=== PATIENT | male | born 1945 | race African-American/Black ===

== ENCOUNTER 2017-08-12 18:26 | Emergency (ER) | payer MEDICARE, OTHER ==
[2017-08-12] MEDS: fentaNYL PF VIAL 100 MCG/2 ML VIAL IV (19:31)
[2017-08-12 19:36] LABS: ADD MAN DIFF? NO
[2017-08-12 19:41] LABS: BASO # 0.1 x10^3/uL (0.0-0.2); BASO % 1 % (0-3); EOS # 0.2 x10^3/uL (0.0-0.7); EOS % 2 % (0-3); HEMATOCRIT 35.5 % (39.0-53.0); LYMPH # 1.2 x10^3/uL (1.0-4.8); LYMPH % 11 % (24-48); MEAN CORPUSCULAR HEMOGLOBIN 32 pg (25-35); MEAN CORPUSCULAR HGB CONC 34 g/dL (31-37); MEAN CORPUSCULAR VOLUME 93 fL (79-100); MONO % 9 % (0-9); NEUT # 8.6 x10^3uL (1.8-7.7); NEUT % 77 % (31-73); PLATELET COUNT 551 x10^3/uL (140-400); RED CELL DISTRIBUTION WIDTH 15.1 % (11.5-14.5); WHITE BLOOD COUNT 11.1 x10^3/uL (4.0-11.0)
[2017-08-12 19:50] LABS: INR 1.2 (0.8-1.1); PROTHROMBIN TIME PATIENT 14.4 SEC (11.7-14.0)
[2017-08-12 19:51] LABS: ANION GAP 6 (6-14); BLOOD UREA NITROGEN 33 mg/dL (8-26); CARBON DIOXIDE 27 mmol/L (21-32); CHLORIDE 101 mmol/L (98-107); CREATININE 1.6 mg/dL (0.7-1.3); GFR 51.7; GLUCOSE 118 mg/dL (70-99); POTASSIUM 4.9 mmol/L (3.5-5.1); SODIUM 134 mmol/L (136-145)
[2017-08-12] MEDS: oxyCODONE/APAP 10/325 1 TAB TABLET PO (22:20)
== END 2017-08-12 23:10 | disposition home or self-care (01) ==
LOC: ER 18:26
DX: M79.89 Other specified soft tissue disorders (principal); M79.662 Pain in left lower leg; Z96.651 Presence of right artificial knee joint
CPT/HCPCS: 36415; 80048; 85025; 85610; 93923; 93971; 96374; 99284; 99285; J3010

== ENCOUNTER 2017-08-28 12:25 | Inpatient (IN) | payer MEDICARE, OTHER ==
[2017-08-28 16:21] LABS: POC GLUCOSE 123 mg/dL (70-99)
[2017-08-28] MEDS ORDERED: MORPHINE SULFATE 4 MG/ML DISP.SYRIN. IV (16:30)
[2017-08-28] MEDS ORDERED: ACETAMINOPHEN 325 MG TABLET. PO (16:45)
[2017-08-28] MEDS ORDERED: BISACODYL 10 MG SUPP.RECT. RC (16:45)
[2017-08-28] MEDS: ALBUTEROL SULFATE 2.5 MG/3 ML NEBU. NEB ×2 (16:46→19:02)
[2017-08-28] MEDS: FERROUS SULFATE 325 MG TABLET. PO (17:00)
[2017-08-28] MEDS: FOLIC ACID 1 MG TABLET. PO (17:00)
[2017-08-28] MEDS: ASCORBIC ACID 500 MG TABLET PO (17:00)
[2017-08-28] MEDS: POLYETHYLENE GLYCOL 3350 17 GM PACKET. PO (17:00)
[2017-08-28] MEDS: CETIRIZINE HCL 10 MG TABLET. PO (17:00)
[2017-08-28] MEDS: PROMETH/CODEINE 6.25/10MG 5 ML SYRUP. PO ×2 (17:00→22:00)
[2017-08-28] MEDS ORDERED: CLOPIDOGREL BISULFATE 75 MG TABLET PO (17:00)
[2017-08-28] MEDS ORDERED: DOCUSATE SODIUM 100 MG CAPSULE. PO (17:00)
[2017-08-28] MEDS: CYANOCOBALAMIN (VITAMIN B-12) 1,000 MCG TABLET. PO (17:00)
[2017-08-28] MEDS ORDERED: amLODIPine BESYLATE 10 MG TABLET PO (17:00)
[2017-08-28] MEDS: LACTULOSE 20 GM/30 ML SOLUTION. PO (17:00)
[2017-08-28] MEDS: MORPHINE SULFATE 4 MG/ML DISP.SYRIN. IV (17:52)
[2017-08-28] MEDS: oxyCODONE/APAP 5/325 1 TAB TABLET PO (17:53)
[2017-08-28] MEDS: PIPERACILLIN/TAZOBACTAM 3.375 GM in IV NORMAL SALINE 50ML 50 ML IV (17:53)
[2017-08-28] MEDS ORDERED: MAGNESIUM HYDROXIDE 2,400 MG/30 ML ORAL.SUSP. PO (19:00)
[2017-08-28] MEDS ORDERED: SODIUM CHLORIDE 0.65% NASAL SPRAY 45ML BOTTLE. NS (19:00)
[2017-08-28] MEDS ORDERED: BENZOCAINE/MENTHOL LOZENGE. MM (20:00)
[2017-08-28 20:50] LABS: POC GLUCOSE 124 mg/dL (70-99)
[2017-08-28] MEDS: TAMSULOSIN 0.4 MG CAP.ER.24H. PO (21:59)
[2017-08-28] MEDS: BENZONATATE 100 MG CAPSULE. PO (22:00)
[2017-08-28] MEDS: SENNOSIDES/DOCUSATE 8.6/50MG TABLET. PO (22:00)
[2017-08-28] MEDS: GABAPENTIN 300 MG CAPSULE. PO (22:00)
[2017-08-29] MEDS: PIPERACILLIN/TAZOBACTAM 3.375 GM in IV NORMAL SALINE 50ML 50 ML IV ×5 (00:30→23:40)
[2017-08-29] MEDS: oxyCODONE/APAP 5/325 1 TAB TABLET PO ×5 (00:42→20:52)
[2017-08-29 07:20] LABS: POC GLUCOSE 106 mg/dL (70-99)
[2017-08-29] MEDS: ALBUTEROL SULFATE 2.5 MG/3 ML NEBU. NEB ×4 (07:36→19:37)
[2017-08-29] MEDS: CYANOCOBALAMIN (VITAMIN B-12) 1,000 MCG TABLET. PO (08:58)
[2017-08-29] MEDS: SENNOSIDES/DOCUSATE 8.6/50MG TABLET. PO ×2 (08:58→20:46)
[2017-08-29] MEDS: MULTIVITAMIN with MINERAL TABLET. PO (08:58)
[2017-08-29] MEDS: FERROUS SULFATE 325 MG TABLET. PO ×3 (08:58→17:00)
[2017-08-29] MEDS: CETIRIZINE HCL 10 MG TABLET. PO (08:58)
[2017-08-29] MEDS: GABAPENTIN 300 MG CAPSULE. PO ×2 (08:58→20:46)
[2017-08-29] MEDS: DOCUSATE SODIUM 100 MG CAPSULE. PO (08:58)
[2017-08-29] MEDS: amLODIPine BESYLATE 10 MG TABLET PO (08:59)
[2017-08-29] MEDS: CLOPIDOGREL BISULFATE 75 MG TABLET PO (08:59)
[2017-08-29] MEDS: POLYETHYLENE GLYCOL 3350 17 GM PACKET. PO (08:59)
[2017-08-29] MEDS: BENZONATATE 100 MG CAPSULE. PO ×3 (08:59→20:47)
[2017-08-29] MEDS: FOLIC ACID 1 MG TABLET. PO (08:59)
[2017-08-29] MEDS: LACTULOSE 20 GM/30 ML SOLUTION. PO (08:59)
[2017-08-29] MEDS: PROMETH/CODEINE 6.25/10MG 5 ML SYRUP. PO ×4 (08:59→20:47)
[2017-08-29] MEDS: FLUTICASONE 50MCG/NASAL SPRAY 16GM BOTTLE. NS (09:13)
[2017-08-29] MEDS: ASCORBIC ACID 500 MG TABLET PO (09:13)
[2017-08-29 12:31] LABS: POC GLUCOSE 100 mg/dL (70-99)
[2017-08-29] MEDS: LINEZOLID 600 MG TABLET PO ×2 (12:49→20:47)
[2017-08-29] MEDS: FLUCONAZOLE 100 MG TABLET. PO (12:49)
[2017-08-29] MEDS: LACTOBACILLUS RHAMNOSUS GG 1 CAPSULE. PO ×2 (15:46→20:47)
[2017-08-29 16:45] LABS: POC GLUCOSE 100 mg/dL (70-99)
[2017-08-29] MEDS: fentaNYL 12MCG/HR PATCH 1 PATCH PATCH.TD72 TD (17:01)
[2017-08-29 20:25] LABS: POC GLUCOSE 97 mg/dL (70-99)
[2017-08-29] MEDS: TAMSULOSIN 0.4 MG CAP.ER.24H. PO (20:46)
[2017-08-29] MEDS: IPRATRPIUM/ALBUTEROL 0.5/2.5MG 3 ML NEBU. NEB (21:15)
[2017-08-30] MEDS: ALBUTEROL SULFATE 2.5 MG/3 ML NEBU. NEB ×2 (01:19→07:38)
[2017-08-30] MEDS: PIPERACILLIN/TAZOBACTAM 3.375 GM in IV NORMAL SALINE 50ML 50 ML IV ×4 (05:44→23:58)
[2017-08-30] MEDS: oxyCODONE/APAP 5/325 1 TAB TABLET PO ×4 (05:45→20:54)
[2017-08-30] MEDS: IPRATRPIUM/ALBUTEROL 0.5/2.5MG 3 ML NEBU. NEB ×4 (07:41→20:04)
[2017-08-30] MEDS: DOCUSATE SODIUM 100 MG CAPSULE. PO (08:11)
[2017-08-30] MEDS: MULTIVITAMIN with MINERAL TABLET. PO (08:11)
[2017-08-30] MEDS: ASCORBIC ACID 500 MG TABLET PO (08:13)
[2017-08-30] MEDS: FLUCONAZOLE 100 MG TABLET. PO (08:13)
[2017-08-30] MEDS: CYANOCOBALAMIN (VITAMIN B-12) 1,000 MCG TABLET. PO (08:13)
[2017-08-30] MEDS: LACTOBACILLUS RHAMNOSUS GG 1 CAPSULE. PO ×2 (08:13→20:44)
[2017-08-30] MEDS: LINEZOLID 600 MG TABLET PO ×2 (08:13→20:44)
[2017-08-30] MEDS: FERROUS SULFATE 325 MG TABLET. PO ×3 (08:13→16:22)
[2017-08-30] MEDS: CLOPIDOGREL BISULFATE 75 MG TABLET PO (08:13)
[2017-08-30] MEDS: FOLIC ACID 1 MG TABLET. PO (08:13)
[2017-08-30] MEDS: GABAPENTIN 300 MG CAPSULE. PO ×2 (08:13→20:44)
[2017-08-30] MEDS: amLODIPine BESYLATE 10 MG TABLET PO (08:14)
[2017-08-30] MEDS: PROMETH/CODEINE 6.25/10MG 5 ML SYRUP. PO ×4 (08:14→20:47)
[2017-08-30] MEDS: CETIRIZINE HCL 10 MG TABLET. PO (08:14)
[2017-08-30] MEDS: LACTULOSE 20 GM/30 ML SOLUTION. PO (08:14)
[2017-08-30] MEDS: POLYETHYLENE GLYCOL 3350 17 GM PACKET. PO (08:15)
[2017-08-30] MEDS: FLUTICASONE 50MCG/NASAL SPRAY 16GM BOTTLE. NS (08:15)
[2017-08-30] MEDS: SENNOSIDES/DOCUSATE 8.6/50MG TABLET. PO ×2 (08:16→20:48)
[2017-08-30 08:25] LABS: POC GLUCOSE 95 mg/dL (70-99)
[2017-08-30 09:12] LABS: ADD MAN DIFF? NO
[2017-08-30] MEDS: BENZONATATE 100 MG CAPSULE. PO ×3 (09:19→20:44)
[2017-08-30 09:20] LABS: BASO % 1 % (0-3); EOS # 0.5 x10^3/uL (0.0-0.7); EOS % 9 % (0-3); HEMATOCRIT 27.9 % (39.0-53.0); HEMOGLOBIN 9.4 g/dL (13.0-17.5); LYMPH # 0.8 x10^3/uL (1.0-4.8); LYMPH % 13 % (24-48); MEAN CORPUSCULAR HEMOGLOBIN 32 pg (25-35); MEAN CORPUSCULAR HGB CONC 34 g/dL (31-37); MEAN CORPUSCULAR VOLUME 93 fL (79-100); MONO # 0.5 x10^3/uL (0.0-1.1); MONO % 8 % (0-9); NEUT # 4.2 x10^3uL (1.8-7.7); NEUT % 69 % (31-73); PLATELET COUNT 312 x10^3/uL (140-400); RED BLOOD COUNT 2.99 x10^6/uL (4.30-5.70); RED CELL DISTRIBUTION WIDTH 16.2 % (11.5-14.5); WHITE BLOOD COUNT 6.1 x10^3/uL (4.0-11.0)
[2017-08-30 09:39] LABS: ANION GAP 8 (6-14); BLOOD UREA NITROGEN 26 mg/dL (8-26); CALCIUM 8.5 mg/dL (8.5-10.1); CARBON DIOXIDE 28 mmol/L (21-32); CHLORIDE 103 mmol/L (98-107); CREATININE 1.7 mg/dL (0.7-1.3); GFR 48.2; GLUCOSE 127 mg/dL (70-99); POTASSIUM 4.5 mmol/L (3.5-5.1); SODIUM 139 mmol/L (136-145)
[2017-08-30 11:35] LABS: POC GLUCOSE 124 mg/dL (70-99)
[2017-08-30 17:31] LABS: POC GLUCOSE 128 mg/dL (70-99)
[2017-08-30 19:17] LABS: MRSA BY PCR Negative (Negative)
[2017-08-30] MEDS: TAMSULOSIN 0.4 MG CAP.ER.24H. PO (20:43)
[2017-08-30] MEDS: OXYMETAZOLINE 0.05% NASAL SPRAY 30ML BOTTLE. NS (20:46)
[2017-08-30 21:47] LABS: POC GLUCOSE 117 mg/dL (70-99)
[2017-08-31] MEDS: oxyCODONE/APAP 5/325 1 TAB TABLET PO ×5 (01:01→20:41)
[2017-08-31] MEDS: ALBUTEROL SULFATE 2.5 MG/3 ML NEBU. NEB (02:29)
[2017-08-31 05:06] LABS: ADD MAN DIFF? NO
[2017-08-31 05:32] LABS: BASO # 0.1 x10^3/uL (0.0-0.2); BASO % 1 % (0-3); EOS # 0.6 x10^3/uL (0.0-0.7); EOS % 10 % (0-3); HEMATOCRIT 25.1 % (39.0-53.0); HEMOGLOBIN 8.2 g/dL (13.0-17.5); LYMPH # 0.9 x10^3/uL (1.0-4.8); LYMPH % 14 % (24-48); MEAN CORPUSCULAR HEMOGLOBIN 31 pg (25-35); MEAN CORPUSCULAR HGB CONC 33 g/dL (31-37); MEAN CORPUSCULAR VOLUME 94 fL (79-100); MONO # 0.6 x10^3/uL (0.0-1.1); MONO % 10 % (0-9); NEUT # 4.2 x10^3uL (1.8-7.7); NEUT % 65 % (31-73); PLATELET COUNT 261 x10^3/uL (140-400); RED BLOOD COUNT 2.67 x10^6/uL (4.30-5.70); RED CELL DISTRIBUTION WIDTH 16.1 % (11.5-14.5); WHITE BLOOD COUNT 6.4 x10^3/uL (4.0-11.0)
[2017-08-31 06:04] LABS: ANION GAP 8 (6-14); BLOOD UREA NITROGEN 22 mg/dL (8-26); CALCIUM 8.2 mg/dL (8.5-10.1); CARBON DIOXIDE 25 mmol/L (21-32); CHLORIDE 107 mmol/L (98-107); CREATININE 1.7 mg/dL (0.7-1.3); GFR 48.2; GLUCOSE 95 mg/dL (70-99); POTASSIUM 4.5 mmol/L (3.5-5.1); SODIUM 140 mmol/L (136-145)
[2017-08-31] MEDS: PIPERACILLIN/TAZOBACTAM 3.375 GM in IV NORMAL SALINE 50ML 50 ML IV ×4 (06:25→23:31)
[2017-08-31] MEDS: MULTIVITAMIN with MINERAL TABLET. PO (07:53)
[2017-08-31] MEDS: BENZONATATE 100 MG CAPSULE. PO ×3 (07:54→20:41)
[2017-08-31] MEDS: GABAPENTIN 300 MG CAPSULE. PO ×2 (07:54→20:42)
[2017-08-31] MEDS: CETIRIZINE HCL 10 MG TABLET. PO (07:54)
[2017-08-31] MEDS: LACTOBACILLUS RHAMNOSUS GG 1 CAPSULE. PO ×2 (07:55→20:42)
[2017-08-31] MEDS: CLOPIDOGREL BISULFATE 75 MG TABLET PO (07:55)
[2017-08-31] MEDS: LINEZOLID 600 MG TABLET PO ×2 (07:56→20:42)
[2017-08-31] MEDS: FOLIC ACID 1 MG TABLET. PO (07:56)
[2017-08-31] MEDS: CYANOCOBALAMIN (VITAMIN B-12) 1,000 MCG TABLET. PO (07:56)
[2017-08-31] MEDS: FERROUS SULFATE 325 MG TABLET. PO ×3 (07:56→16:42)
[2017-08-31] MEDS: ASCORBIC ACID 500 MG TABLET PO (07:56)
[2017-08-31] MEDS: FLUCONAZOLE 100 MG TABLET. PO (07:56)
[2017-08-31] MEDS: FLUTICASONE 50MCG/NASAL SPRAY 16GM BOTTLE. NS (07:57)
[2017-08-31] MEDS: PROMETH/CODEINE 6.25/10MG 5 ML SYRUP. PO ×4 (07:57→20:41)
[2017-08-31] MEDS: OXYMETAZOLINE 0.05% NASAL SPRAY 30ML BOTTLE. NS ×2 (07:57→20:43)
[2017-08-31 07:58] LABS: POC GLUCOSE 89 mg/dL (70-99)
[2017-08-31] MEDS: IPRATRPIUM/ALBUTEROL 0.5/2.5MG 3 ML NEBU. NEB ×4 (08:49→19:57)
[2017-08-31] MEDS: LACTULOSE 20 GM/30 ML SOLUTION. PO (08:54)
[2017-08-31] MEDS: POLYETHYLENE GLYCOL 3350 17 GM PACKET. PO (08:54)
[2017-08-31] MEDS: DOCUSATE SODIUM 100 MG CAPSULE. PO (08:54)
[2017-08-31] MEDS: SENNOSIDES/DOCUSATE 8.6/50MG TABLET. PO ×2 (08:55→20:36)
[2017-08-31] MEDS: amLODIPine BESYLATE 10 MG TABLET PO (08:58)
[2017-08-31 11:22] LABS: POC GLUCOSE 117 mg/dL (70-99)
[2017-08-31 16:43] LABS: POC GLUCOSE 120 mg/dL (70-99)
[2017-08-31] MEDS: TAMSULOSIN 0.4 MG CAP.ER.24H. PO (20:42)
[2017-08-31 20:44] LABS: POC GLUCOSE 127 mg/dL (70-99)
[2017-09-01] MEDS: ALBUTEROL SULFATE 2.5 MG/3 ML NEBU. NEB (00:55)
[2017-09-01] MEDS: oxyCODONE/APAP 5/325 1 TAB TABLET PO ×5 (03:10→23:26)
[2017-09-01] MEDS: PIPERACILLIN/TAZOBACTAM 3.375 GM in IV NORMAL SALINE 50ML 50 ML IV ×4 (05:10→23:25)
[2017-09-01] MEDS: IPRATRPIUM/ALBUTEROL 0.5/2.5MG 3 ML NEBU. NEB ×4 (06:06→19:37)
[2017-09-01 07:35] LABS: ADD MAN DIFF? NO
[2017-09-01 07:40] LABS: BASO # 0.1 x10^3/uL (0.0-0.2); BASO % 1 % (0-3); EOS # 0.7 x10^3/uL (0.0-0.7); EOS % 11 % (0-3); HEMATOCRIT 26.5 % (39.0-53.0); HEMOGLOBIN 8.8 g/dL (13.0-17.5); LYMPH # 0.8 x10^3/uL (1.0-4.8); LYMPH % 13 % (24-48); MEAN CORPUSCULAR HEMOGLOBIN 31 pg (25-35); MEAN CORPUSCULAR HGB CONC 33 g/dL (31-37); MEAN CORPUSCULAR VOLUME 94 fL (79-100); MONO # 0.5 x10^3/uL (0.0-1.1); MONO % 9 % (0-9); NEUT # 4.1 x10^3uL (1.8-7.7); NEUT % 66 % (31-73); PLATELET COUNT 287 x10^3/uL (140-400); RED BLOOD COUNT 2.81 x10^6/uL (4.30-5.70); WHITE BLOOD COUNT 6.2 x10^3/uL (4.0-11.0)
[2017-09-01 08:05] LABS: ALBUMIN 2.5 g/dL (3.4-5.0); ALBUMIN/GLOBULIN RATIO 0.5 (1.0-1.7); ALK PHOS 53 U/L (46-116); ALT (SGPT) 15 U/L (16-63); ANION GAP 7 (6-14); AST (SGOT) 22 U/L (15-37); BLOOD UREA NITROGEN 18 mg/dL (8-26); BUN/CREATININE RATIO 13 (6-20); CALCIUM 9.1 mg/dL (8.5-10.1); CARBON DIOXIDE 24 mmol/L (21-32); CHLORIDE 106 mmol/L (98-107); CREATININE 1.4 mg/dL (0.7-1.3); GFR 60.3; GLUCOSE 99 mg/dL (70-99); POTASSIUM 4.3 mmol/L (3.5-5.1); SODIUM 137 mmol/L (136-145); TOTAL BILIRUBIN 0.4 mg/dL (0.2-1.0); TOTAL PROTEIN 7.1 g/dL (6.4-8.2)
[2017-09-01] MEDS: OXYMETAZOLINE 0.05% NASAL SPRAY 30ML BOTTLE. NS ×2 (08:22→20:45)
[2017-09-01] MEDS: MULTIVITAMIN with MINERAL TABLET. PO (08:24)
[2017-09-01] MEDS: CYANOCOBALAMIN (VITAMIN B-12) 1,000 MCG TABLET. PO (08:24)
[2017-09-01] MEDS: CLOPIDOGREL BISULFATE 75 MG TABLET PO (08:24)
[2017-09-01] MEDS: LACTOBACILLUS RHAMNOSUS GG 1 CAPSULE. PO ×2 (08:25→20:45)
[2017-09-01] MEDS: FLUCONAZOLE 100 MG TABLET. PO (08:25)
[2017-09-01] MEDS: PROMETH/CODEINE 6.25/10MG 5 ML SYRUP. PO ×4 (08:25→20:46)
[2017-09-01] MEDS: FOLIC ACID 1 MG TABLET. PO (08:25)
[2017-09-01 08:26] LABS: POC GLUCOSE 93 mg/dL (70-99)
[2017-09-01] MEDS: GABAPENTIN 300 MG CAPSULE. PO ×2 (08:26→20:46)
[2017-09-01] MEDS: BENZONATATE 100 MG CAPSULE. PO ×3 (08:26→20:46)
[2017-09-01] MEDS: ASCORBIC ACID 500 MG TABLET PO (08:26)
[2017-09-01] MEDS: LINEZOLID 600 MG TABLET PO ×2 (08:27→20:46)
[2017-09-01] MEDS: CETIRIZINE HCL 10 MG TABLET. PO (08:27)
[2017-09-01] MEDS: FLUTICASONE 50MCG/NASAL SPRAY 16GM BOTTLE. NS (08:33)
[2017-09-01] MEDS: POLYETHYLENE GLYCOL 3350 17 GM PACKET. PO (09:00)
[2017-09-01] MEDS: LACTULOSE 20 GM/30 ML SOLUTION. PO (09:00)
[2017-09-01] MEDS: DOCUSATE SODIUM 100 MG CAPSULE. PO (09:00)
[2017-09-01] MEDS: SENNOSIDES/DOCUSATE 8.6/50MG TABLET. PO ×2 (09:00→20:46)
[2017-09-01 09:07] LABS: SEDIMENTATION RATE 79 (0-15)
[2017-09-01] MEDS: FERROUS SULFATE 325 MG TABLET. PO ×3 (09:22→17:40)
[2017-09-01] MEDS: amLODIPine BESYLATE 10 MG TABLET PO (09:22)
[2017-09-01 11:14] LABS: POC GLUCOSE 115 mg/dL (70-99)
[2017-09-01 16:30] LABS: POC GLUCOSE 121 mg/dL (70-99)
[2017-09-01] MEDS: fentaNYL 12MCG/HR PATCH 1 PATCH PATCH.TD72 TD (17:41)
[2017-09-01 19:53] LABS: POC GLUCOSE 116 mg/dL (70-99)
[2017-09-01] MEDS: TAMSULOSIN 0.4 MG CAP.ER.24H. PO (20:46)
[2017-09-02] MEDS: PIPERACILLIN/TAZOBACTAM 3.375 GM in IV NORMAL SALINE 50ML 50 ML IV ×3 (05:20→17:22)
[2017-09-02] MEDS: oxyCODONE/APAP 5/325 1 TAB TABLET PO ×4 (05:25→18:24)
[2017-09-02] MEDS: IPRATRPIUM/ALBUTEROL 0.5/2.5MG 3 ML NEBU. NEB ×4 (05:44→19:39)
[2017-09-02 07:31] LABS: POC GLUCOSE 97 mg/dL (70-99)
[2017-09-02] MEDS: SENNOSIDES/DOCUSATE 8.6/50MG TABLET. PO ×2 (09:00→21:54)
[2017-09-02] MEDS: DOCUSATE SODIUM 100 MG CAPSULE. PO (09:00)
[2017-09-02] MEDS: LACTULOSE 20 GM/30 ML SOLUTION. PO (09:00)
[2017-09-02] MEDS: POLYETHYLENE GLYCOL 3350 17 GM PACKET. PO (09:00)
[2017-09-02] MEDS: BENZONATATE 100 MG CAPSULE. PO ×3 (10:02→21:54)
[2017-09-02] MEDS: PROMETH/CODEINE 6.25/10MG 5 ML SYRUP. PO ×4 (10:03→21:52)
[2017-09-02] MEDS: PREGABALIN 25 MG CAPSULE PO ×3 (10:04→21:53)
[2017-09-02] MEDS: amLODIPine BESYLATE 10 MG TABLET PO (10:04)
[2017-09-02] MEDS: CLOPIDOGREL BISULFATE 75 MG TABLET PO (10:05)
[2017-09-02] MEDS: CYANOCOBALAMIN (VITAMIN B-12) 1,000 MCG TABLET. PO (10:05)
[2017-09-02] MEDS: MULTIVITAMIN with MINERAL TABLET. PO (10:05)
[2017-09-02] MEDS: CETIRIZINE HCL 10 MG TABLET. PO (10:06)
[2017-09-02] MEDS: LINEZOLID 600 MG TABLET PO (10:06)
[2017-09-02] MEDS: FERROUS SULFATE 325 MG TABLET. PO ×3 (10:06→17:22)
[2017-09-02] MEDS: LACTOBACILLUS RHAMNOSUS GG 1 CAPSULE. PO ×2 (10:06→21:53)
[2017-09-02] MEDS: FOLIC ACID 1 MG TABLET. PO (10:06)
[2017-09-02] MEDS: FLUCONAZOLE 100 MG TABLET. PO (10:06)
[2017-09-02] MEDS: ASCORBIC ACID 500 MG TABLET PO (10:06)
[2017-09-02 10:33] LABS: ADD MAN DIFF? NO
[2017-09-02 10:35] LABS: BASO # 0.1 x10^3/uL (0.0-0.2); BASO % 1 % (0-3); EOS # 0.6 x10^3/uL (0.0-0.7); EOS % 9 % (0-3); HEMATOCRIT 32.4 % (39.0-53.0); HEMOGLOBIN 10.7 g/dL (13.0-17.5); LYMPH % 15 % (24-48); MEAN CORPUSCULAR HEMOGLOBIN 31 pg (25-35); MEAN CORPUSCULAR HGB CONC 33 g/dL (31-37); MEAN CORPUSCULAR VOLUME 95 fL (79-100); MONO # 0.4 x10^3/uL (0.0-1.1); MONO % 6 % (0-9); NEUT # 4.6 x10^3uL (1.8-7.7); NEUT % 69 % (31-73); PLATELET COUNT 364 x10^3/uL (140-400); RED BLOOD COUNT 3.43 x10^6/uL (4.30-5.70); WHITE BLOOD COUNT 6.6 x10^3/uL (4.0-11.0)
[2017-09-02] MEDS: OXYMETAZOLINE 0.05% NASAL SPRAY 30ML BOTTLE. NS ×2 (10:35→21:00)
[2017-09-02] MEDS: FLUTICASONE 50MCG/NASAL SPRAY 16GM BOTTLE. NS (10:36)
[2017-09-02 10:54] LABS: ANION GAP 9 (6-14); BLOOD UREA NITROGEN 13 mg/dL (8-26); CALCIUM 8.9 mg/dL (8.5-10.1); CARBON DIOXIDE 26 mmol/L (21-32); CHLORIDE 102 mmol/L (98-107); CREATININE 1.5 mg/dL (0.7-1.3); GFR 55.7; GLUCOSE 102 mg/dL (70-99); POTASSIUM 4.2 mmol/L (3.5-5.1); SODIUM 137 mmol/L (136-145)
[2017-09-02] MEDS: COLCHICINE 0.6 MG TABLET PO (12:08)
[2017-09-02 16:27] LABS: POC GLUCOSE 104 mg/dL (70-99)
[2017-09-02 16:27] LABS: POC GLUCOSE 111 mg/dL (70-99)
[2017-09-02 19:14] LABS: IMMUNOGLOBULIN G 1997 mg/dL (700-1600)
[2017-09-02 19:14] LABS: ALPHA 1 ANTITRYPSIN 224 mg/dL (90-200)
[2017-09-02 20:54] LABS: POC GLUCOSE 89 mg/dL (70-99)
[2017-09-02] MEDS: TAMSULOSIN 0.4 MG CAP.ER.24H. PO (21:54)
[2017-09-03] MEDS: oxyCODONE/APAP 5/325 1 TAB TABLET PO ×6 (00:01→10:44)
[2017-09-03] MEDS: PIPERACILLIN/TAZOBACTAM 3.375 GM in IV NORMAL SALINE 50ML 50 ML IV ×6 (00:02→19:56)
[2017-09-03 05:41] LABS: ADD MAN DIFF? NO
[2017-09-03 06:02] LABS: BASO # 0.1 x10^3/uL (0.0-0.2); BASO % 1 % (0-3); EOS # 0.6 x10^3/uL (0.0-0.7); EOS % 9 % (0-3); HEMATOCRIT 29.8 % (39.0-53.0); HEMOGLOBIN 9.8 g/dL (13.0-17.5); LYMPH # 0.8 x10^3/uL (1.0-4.8); LYMPH % 14 % (24-48); MEAN CORPUSCULAR HEMOGLOBIN 31 pg (25-35); MEAN CORPUSCULAR HGB CONC 33 g/dL (31-37); MEAN CORPUSCULAR VOLUME 94 fL (79-100); MONO # 0.5 x10^3/uL (0.0-1.1); MONO % 8 % (0-9); NEUT # 4.1 x10^3uL (1.8-7.7); NEUT % 68 % (31-73); PLATELET COUNT 308 x10^3/uL (140-400); RED BLOOD COUNT 3.17 x10^6/uL (4.30-5.70); RED CELL DISTRIBUTION WIDTH 15.5 % (11.5-14.5)
[2017-09-03 06:05] LABS: ANION GAP 8 (6-14); BLOOD UREA NITROGEN 13 mg/dL (8-26); CALCIUM 8.9 mg/dL (8.5-10.1); CARBON DIOXIDE 26 mmol/L (21-32); CHLORIDE 104 mmol/L (98-107); CREATININE 1.3 mg/dL (0.7-1.3); GFR 65.7; GLUCOSE 97 mg/dL (70-99); POTASSIUM 4.1 mmol/L (3.5-5.1); SODIUM 138 mmol/L (136-145)
[2017-09-03] MEDS: IPRATRPIUM/ALBUTEROL 0.5/2.5MG 3 ML NEBU. NEB ×4 (07:23→19:37)
[2017-09-03 07:56] LABS: POC GLUCOSE 104 mg/dL (70-99)
[2017-09-03] MEDS: COLCHICINE 0.6 MG TABLET PO ×4 (08:36→20:30)
[2017-09-03] MEDS: FERROUS SULFATE 325 MG TABLET. PO ×3 (08:36→17:33)
[2017-09-03] MEDS: PROMETH/CODEINE 6.25/10MG 5 ML SYRUP. PO ×4 (08:36→20:33)
[2017-09-03] MEDS: PREGABALIN 25 MG CAPSULE PO ×3 (08:36→20:31)
[2017-09-03] MEDS: CYANOCOBALAMIN (VITAMIN B-12) 1,000 MCG TABLET. PO (08:36)
[2017-09-03] MEDS: LACTOBACILLUS RHAMNOSUS GG 1 CAPSULE. PO ×2 (08:36→20:31)
[2017-09-03] MEDS: MULTIVITAMIN with MINERAL TABLET. PO (08:36)
[2017-09-03] MEDS: ASCORBIC ACID 500 MG TABLET PO (08:37)
[2017-09-03] MEDS: FOLIC ACID 1 MG TABLET. PO (08:37)
[2017-09-03] MEDS: BENZONATATE 100 MG CAPSULE. PO ×3 (08:37→20:31)
[2017-09-03] MEDS: CETIRIZINE HCL 10 MG TABLET. PO (08:37)
[2017-09-03] MEDS: CLOPIDOGREL BISULFATE 75 MG TABLET PO (08:37)
[2017-09-03] MEDS: FLUCONAZOLE 100 MG TABLET. PO (08:37)
[2017-09-03] MEDS: amLODIPine BESYLATE 10 MG TABLET PO (08:40)
[2017-09-03] MEDS: FLUTICASONE 50MCG/NASAL SPRAY 16GM BOTTLE. NS (08:41)
[2017-09-03] MEDS: OXYMETAZOLINE 0.05% NASAL SPRAY 30ML BOTTLE. NS ×2 (08:41→20:35)
[2017-09-03] MEDS: LACTULOSE 20 GM/30 ML SOLUTION. PO (08:46)
[2017-09-03] MEDS: SENNOSIDES/DOCUSATE 8.6/50MG TABLET. PO ×2 (08:46→20:31)
[2017-09-03] MEDS: DOCUSATE SODIUM 100 MG CAPSULE. PO (08:46)
[2017-09-03] MEDS: POLYETHYLENE GLYCOL 3350 17 GM PACKET. PO (08:46)
[2017-09-03 11:11] LABS: POC GLUCOSE 124 mg/dL (70-99)
[2017-09-03] MEDS: predniSONE 20 MG TABLET PO (12:15)
[2017-09-03] MEDS: fentaNYL 25MCG/HR PATCH 1 PATCH PATCH.TD72 TD (12:17)
[2017-09-03] MEDS: oxyCODONE/APAP 10/325 1 TAB TABLET PO ×2 (14:19→20:30)
[2017-09-03 16:29] LABS: POC GLUCOSE 125 mg/dL (70-99)
[2017-09-03] MEDS: TAMSULOSIN 0.4 MG CAP.ER.24H. PO (20:31)
[2017-09-03 21:08] LABS: POC GLUCOSE 144 mg/dL (70-99)
[2017-09-04] MEDS: PIPERACILLIN/TAZOBACTAM 3.375 GM in IV NORMAL SALINE 50ML 50 ML IV ×2 (01:14→06:08)
[2017-09-04 05:31] LABS: ADD MAN DIFF? NO
[2017-09-04 05:51] LABS: BASO % 1 % (0-3); EOS # 0.1 x10^3/uL (0.0-0.7); EOS % 3 % (0-3); HEMATOCRIT 27.9 % (39.0-53.0); HEMOGLOBIN 9.3 g/dL (13.0-17.5); LYMPH % 20 % (24-48); MEAN CORPUSCULAR HEMOGLOBIN 31 pg (25-35); MEAN CORPUSCULAR HGB CONC 33 g/dL (31-37); MEAN CORPUSCULAR VOLUME 93 fL (79-100); MONO # 0.6 x10^3/uL (0.0-1.1); MONO % 12 % (0-9); NEUT # 3.4 x10^3uL (1.8-7.7); NEUT % 65 % (31-73); PLATELET COUNT 302 x10^3/uL (140-400); RED CELL DISTRIBUTION WIDTH 15.7 % (11.5-14.5); WHITE BLOOD COUNT 5.2 x10^3/uL (4.0-11.0)
[2017-09-04 06:07] LABS: ANION GAP 9 (6-14); BLOOD UREA NITROGEN 17 mg/dL (8-26); CARBON DIOXIDE 25 mmol/L (21-32); CHLORIDE 103 mmol/L (98-107); CREATININE 1.4 mg/dL (0.7-1.3); GFR 60.3; GLUCOSE 96 mg/dL (70-99); SODIUM 137 mmol/L (136-145)
[2017-09-04] MEDS: oxyCODONE/APAP 10/325 1 TAB TABLET PO ×2 (06:41→11:14)
[2017-09-04] MEDS: IPRATRPIUM/ALBUTEROL 0.5/2.5MG 3 ML NEBU. NEB ×2 (08:02→13:05)
[2017-09-04 08:03] LABS: POC GLUCOSE 106 mg/dL (70-99)
[2017-09-04] MEDS: LACTOBACILLUS RHAMNOSUS GG 1 CAPSULE. PO (08:32)
[2017-09-04] MEDS: PREGABALIN 25 MG CAPSULE PO ×2 (08:32→13:49)
[2017-09-04] MEDS: CLOPIDOGREL BISULFATE 75 MG TABLET PO (08:32)
[2017-09-04] MEDS: FERROUS SULFATE 325 MG TABLET. PO ×2 (08:33→11:13)
[2017-09-04] MEDS: MULTIVITAMIN with MINERAL TABLET. PO (08:33)
[2017-09-04] MEDS: ASCORBIC ACID 500 MG TABLET PO (08:34)
[2017-09-04] MEDS: DOCUSATE SODIUM 100 MG CAPSULE. PO (08:34)
[2017-09-04] MEDS: CETIRIZINE HCL 10 MG TABLET. PO (08:34)
[2017-09-04] MEDS: SENNOSIDES/DOCUSATE 8.6/50MG TABLET. PO (08:34)
[2017-09-04] MEDS: predniSONE 20 MG TABLET PO (08:34)
[2017-09-04] MEDS: FOLIC ACID 1 MG TABLET. PO (08:34)
[2017-09-04] MEDS: CYANOCOBALAMIN (VITAMIN B-12) 1,000 MCG TABLET. PO (08:35)
[2017-09-04] MEDS: FLUCONAZOLE 100 MG TABLET. PO (08:35)
[2017-09-04] MEDS: BENZONATATE 100 MG CAPSULE. PO ×2 (08:36→13:49)
[2017-09-04] MEDS: amLODIPine BESYLATE 10 MG TABLET PO (08:36)
[2017-09-04] MEDS: PROMETH/CODEINE 6.25/10MG 5 ML SYRUP. PO ×2 (08:37→13:50)
[2017-09-04] MEDS: FLUTICASONE 50MCG/NASAL SPRAY 16GM BOTTLE. NS (08:37)
[2017-09-04] MEDS: OXYMETAZOLINE 0.05% NASAL SPRAY 30ML BOTTLE. NS (08:37)
[2017-09-04] MEDS: POLYETHYLENE GLYCOL 3350 17 GM PACKET. PO (08:38)
[2017-09-04] MEDS: LACTULOSE 20 GM/30 ML SOLUTION. PO (08:38)
[2017-09-04] MEDS: AMOXICILLIN/K CLAV 875/125MG TABLET. PO (11:13)
[2017-09-04] MEDS: ALLOPURINOL 100 MG TABLET. PO (11:13)
[2017-09-04 11:41] LABS: POC GLUCOSE 113 mg/dL (70-99)
== END 2017-09-04 15:29 | DRG 871 ==
LOC: 5 SOUTH 12:25
PROVIDERS: Internal Medicine
PROC: 5A09357 Assistance with Respiratory Ventilation, Less than 24 Consecutive Hours, Continuous Positive Airway Pressure (ICD-10-PCS; principal; 2017-08-30)
DX: A41.9 Sepsis, unspecified organism (principal); J96.01 Acute respiratory failure with hypoxia; N17.9 Acute kidney failure, unspecified; D72.1 Eosinophilia; E11.22 Type 2 diabetes mellitus with diabetic chronic kidney disease; E11.41 Type 2 diabetes mellitus with diabetic mononeuropathy; L03.115 Cellulitis of right lower limb; E11.51 Type 2 diabetes mellitus with diabetic peripheral angiopathy without gangrene; B35.9 Dermatophytosis, unspecified; D64.9 Anemia, unspecified; E78.5 Hyperlipidemia, unspecified; G89.29 Other chronic pain; I12.9 Hypertensive chronic kidney disease with stage 1 through stage 4 chronic kidney disease, or unspecified chronic kidney disease; I72.4 Aneurysm of artery of lower extremity; J44.9 Chronic obstructive pulmonary disease, unspecified; J84.10 Pulmonary fibrosis, unspecified; K59.00 Constipation, unspecified; M10.9 Gout, unspecified; M19.90 Unspecified osteoarthritis, unspecified site; I27.29 Other secondary pulmonary hypertension; G57.90 Unspecified mononeuropathy of unspecified lower limb; N18.9 Chronic kidney disease, unspecified; Z96.651 Presence of right artificial knee joint; N40.1 Benign prostatic hyperplasia with lower urinary tract symptoms; R33.8 Other retention of urine; Z82.49 Family history of ischemic heart disease and other diseases of the circulatory system; Z86.73 Personal history of transient ischemic attack (TIA), and cerebral infarction without residual deficits; Z65.5 Exposure to disaster, war and other hostilities; Z87.81 Personal history of (healed) traumatic fracture
CPT/HCPCS: 36415; 71046; 73700; 80048; 80053; 82103; 82784; 82962; 85025; 85651; 87070; 87205; 87641; 93925; 93971; 94640; 94760; 97110-GP; 97162-GP; 97166-GO; 97168-GO; 97530-GP; 97535-GO; J2270; J2543; J7512; J7613; J7620

== ENCOUNTER → 2017-09-16 | Outpatient (CLI) | payer MEDICARE, OTHER | END | disposition home or self-care (01) | LOC: PMGWOUND 09:01 | DX: T81.31XD Disruption of external operation (surgical) wound, not elsewhere classified, subsequent encounter (principal); E11.622 Type 2 diabetes mellitus with other skin ulcer; L97.811 Non-pressure chronic ulcer of other part of right lower leg limited to breakdown of skin; E11.51 Type 2 diabetes mellitus with diabetic peripheral angiopathy without gangrene; F41.9 Anxiety disorder, unspecified; E11.22 Type 2 diabetes mellitus with diabetic chronic kidney disease; I12.9 Hypertensive chronic kidney disease with stage 1 through stage 4 chronic kidney disease, or unspecified chronic kidney disease; N18.9 Chronic kidney disease, unspecified; J96.11 Chronic respiratory failure with hypoxia; E78.5 Hyperlipidemia, unspecified; J44.1 Chronic obstructive pulmonary disease with (acute) exacerbation; Z86.73 Personal history of transient ischemic attack (TIA), and cerebral infarction without residual deficits; Z96.651 Presence of right artificial knee joint; Y83.8 Other surgical procedures as the cause of abnormal reaction of the patient, or of later complication, without mention of misadventure at the time of the procedure; Y92.89 Other specified places as the place of occurrence of the external cause | CPT/HCPCS: 97605 ==

== ENCOUNTER → 2017-09-25 | Outpatient (CLI) | payer MEDICARE, OTHER | END | disposition home or self-care (01) | LOC: PNCL 07:50 | DX: M79.605 Pain in left leg (principal); M79.604 Pain in right leg; I12.9 Hypertensive chronic kidney disease with stage 1 through stage 4 chronic kidney disease, or unspecified chronic kidney disease; E11.22 Type 2 diabetes mellitus with diabetic chronic kidney disease; N18.9 Chronic kidney disease, unspecified; E78.5 Hyperlipidemia, unspecified; J44.9 Chronic obstructive pulmonary disease, unspecified; M19.90 Unspecified osteoarthritis, unspecified site | CPT/HCPCS: G0463 ==

== ENCOUNTER → 2017-10-11 | Day surgery (SDC) | payer MEDICARE, OTHER ==
[~2017-10-11] MED LIST: BUPIVACAINE-EPI 0.25%-1:200000 50 ML VIAL.; DEXAMETHASONE SOD PHOS 20 MG/5 ML VIAL.; LIDOCAINE 1% PF 2 ML VIAL. ID; LIDOCAINE 1% PF 30 ML VIAL.; LIDOCAINE 1%/EPI 1:100,000 20 ML VIAL. INJ; LIDOCAINE 2% PF Vial for OR 5 ML VIAL.; MIDAZOLAM HCL/PF 2 MG/2 ML VIAL.; MORPHINE SULFATE 2 MG/ML DISP.SYRIN. IV; ONDANSETRON PF 4 MG/2 ML VIAL.; ONDANSETRON PF 4 MG/2 ML VIAL. IV; PHENYLEPHRINE in 0.9% NACL PF 1 MG/10 ML SYRINGE. IV; PROCHLORPERAZINE 10 MG/2 ML VIAL. IV; PROPOFOL 20 ML IV; SEVOFLURANE 61 TO 120 MINUTES. IH; fentaNYL PF VIAL 100 MCG/2 ML VIAL; fentaNYL PF VIAL 100 MCG/2 ML VIAL IV
[2017-10-11 09:28] LABS: ADD MAN DIFF? NO
[2017-10-11 09:38] LABS: ANION GAP 8 (6-14); BLOOD UREA NITROGEN 19 mg/dL (8-26); CALCIUM 9.1 mg/dL (8.5-10.1); CARBON DIOXIDE 28 mmol/L (21-32); CHLORIDE 103 mmol/L (98-107); CREATININE 1.5 mg/dL (0.7-1.3); GFR 55.7; GLUCOSE 97 mg/dL (70-99); POTASSIUM 4.9 mmol/L (3.5-5.1); SODIUM 139 mmol/L (136-145)
[2017-10-11 09:45] LABS: INR 1.2 (0.8-1.1); PROTHROMBIN TIME PATIENT 14.5 SEC (11.7-14.0)
[2017-10-11 09:46] LABS: PARTIAL THROMBOPLASTIN TIME 37 SEC (24-38)
[2017-10-11 09:48] LABS: BASO # 0.1 x10^3/uL (0.0-0.2); BASO % 1 % (0-3); EOS # 0.7 x10^3/uL (0.0-0.7); EOS % 11 % (0-3); HEMATOCRIT 35.9 % (39.0-53.0); HEMOGLOBIN 11.6 g/dL (13.0-17.5); LYMPH # 1.5 x10^3/uL (1.0-4.8); LYMPH % 22 % (24-48); MEAN CORPUSCULAR HEMOGLOBIN 29 pg (25-35); MEAN CORPUSCULAR HGB CONC 32 g/dL (31-37); MEAN CORPUSCULAR VOLUME 90 fL (79-100); MONO # 0.8 x10^3/uL (0.0-1.1); MONO % 12 % (0-9); NEUT # 3.7 x10^3uL (1.8-7.7); NEUT % 54 % (31-73); PLATELET COUNT 311 x10^3/uL (140-400); RED BLOOD COUNT 4.01 x10^6/uL (4.30-5.70); RED CELL DISTRIBUTION WIDTH 16.1 % (11.5-14.5); WHITE BLOOD COUNT 6.9 x10^3/uL (4.0-11.0)
[2017-10-11] MEDS: IPRATRPIUM/ALBUTEROL 0.5/2.5MG 3 ML NEBU. NEB ×2 (09:52→13:10)
[2017-10-11] MEDS: IV RINGERS,LACTATED 1000ML 1,000 ML IV (10:01)
[2017-10-11] MEDS: MINERAL OIL for SURGERY 10 ML VIAL. MC (12:26)
[2017-10-11] MEDS: LIDOCAINE 2%/EPI 1:100,000 20 ML VIAL. (12:26)
[2017-10-11 14:38] LABS: POC GLUCOSE 89 mg/dL (70-99)
== END | disposition home or self-care (01) ==
LOC: SURG 08:41
DX: I72.4 Aneurysm of artery of lower extremity (principal); L97.828 Non-pressure chronic ulcer of other part of left lower leg with other specified severity; Z98.890 Other specified postprocedural states; E11.9 Type 2 diabetes mellitus without complications; I12.9 Hypertensive chronic kidney disease with stage 1 through stage 4 chronic kidney disease, or unspecified chronic kidney disease; E11.22 Type 2 diabetes mellitus with diabetic chronic kidney disease; N18.9 Chronic kidney disease, unspecified; Z79.899 Other long term (current) drug therapy; Z86.73 Personal history of transient ischemic attack (TIA), and cerebral infarction without residual deficits; Z79.01 Long term (current) use of anticoagulants; E78.00 Pure hypercholesterolemia, unspecified; J44.9 Chronic obstructive pulmonary disease, unspecified; Z86.718 Personal history of other venous thrombosis and embolism; Z87.01 Personal history of pneumonia (recurrent); E66.9 Obesity, unspecified; Z68.29 Body mass index [BMI] 29.0-29.9, adult; Z87.440 Personal history of urinary (tract) infections; Z96.651 Presence of right artificial knee joint; N40.0 Benign prostatic hyperplasia without lower urinary tract symptoms; M19.90 Unspecified osteoarthritis, unspecified site; E11.44 Type 2 diabetes mellitus with diabetic amyotrophy; D64.9 Anemia, unspecified; Z79.84 Long term (current) use of oral hypoglycemic drugs
CPT/HCPCS: 15100; 36415; 80048; 82962; 85025; 85610; 85730; 94640; A7015; C1768; J0690; J1100; J2001; J2250; J2370; J2405; J2704; J3010; J3490; J7040; J7620